=== PATIENT | female | born 1965 | race Caucasian/White ===

== ENCOUNTER 2016-10-05 13:36 | Inpatient (IN) | payer OTHER ==
[~2016-10-05] VITALS: Ht 162.6 cm; Wt 86.0 kg
[~2016-10-05 13:36] MED LIST: CITA10TA4 PO; LEVO125T3 PO
[2016-10-05 13:40] VITALS: BP 146/85; PULSE 74; RESP 15; TEMP 98.2; O2SAT 99
--- NOTE | 2016-10-05 13:42 | PD ---
Physical Exam Time Seen by Provider: 13:41 Narrative 51 y/o female sent here by Dr. Gandhi after an abnormal stress test. Vital signs reviewed. Seen at triage desk. Awaiting bed placement. Data Data Last Documented VS Vital Signs Date Time Temp Pulse Resp B/P Pulse Ox O2 Delivery O2 Flow Rate FiO2 10/05/16 13:40 98.2 74 15 146/85 99 MDM Medical Record Reviewed: Yes Supervised Visit with JACINTA: Carlos Vo Oct 05, 2016 13:42
[2016-10-05] MEDS: SODIUM CHLOR 0.9% 1000 ML INJ 1,000 ML IV ONE ×2 (14:00→14:17)
[2016-10-05] MEDS ORDERED: SODIUM CHLORIDE 0.9% FLUSH 10 ML FLUSH IVF PRN (14:00)
[2016-10-05 14:18] VITALS: BP_SYST 129; BP_SYST 139; BP_DIAS 75; BP_DIAS 81; PULSE 62; O2SAT 96
--- NOTE | 2016-10-05 14:32 | PD ---
HPI Chief Complaint: Cardiac Complaint Time Seen by Provider: 14:20 Travel History International Travel<30 days: No Contact w/Intl Traveler<30days: No Traveled to known affect area: No History of Present Illness HPI Patient is a 51-year-old female sent to the emergency department by Dr. Jensen Gandhi after she developed chest pain while having an exercise stress test today. Patient reports chest pain in the left upper chest wall currently, her pain is a 3 out of 10. She states during the test her pain was a 5 out of 10 and was accompanied by shortness of breath. Patient was given 3 nitroglycerin sublingually at her doctor's office. Patient denies any nausea, lightheadedness , headache. Her past medical history significant for hypothyroidism and anxiety. [facility] Past Medical History Anxiety: Yes Chest Pain: Yes (on and off for a few months) Thyroid Disease: Yes ?: Not Past Surgical History AICD: No Joint Replacement: No Pacemaker: No Other Surgery: Yes (ankle surgery) Social History Alcohol Use: Yes ([facility]) Tobacco Use: No Substance Use: No Allergies-Medications (Allergen,Severity, Reaction): Coded Allergies: HMG-CoA Reductase Inhibitors (Verified Allergy, Severe, 10/05/16) Reported Meds & Prescriptions Reported Meds & Active Scripts Active Reported Levothyroxine 125 mcg (Levothyroxine Sodium) 125 Mcg Tab 125 Mcg PO DAILY Citalopram Hydrobromide 10 Mg Tab 10 Mg PO BID Review of Systems Except as stated in HPI: all other systems reviewed are Neg Eyes: No: Blurred Vision HENT: No: Headaches Cardiovascular: Positive: Chest Pain or Discomfort Respiratory: Positive: Shortness of Breath Gastrointestinal: No: Nausea, Vomiting, Abdominal Pain Physical Exam Narrative GENERAL: Well-developed, well-nourished, alert female. Resting comfortably in no acute distress. SKIN: Warm and dry. HEAD: Atraumatic. Normocephalic. EYES: Pupils equal and round. No scleral icterus. No injection or drainage. ENT: No nasal bleeding or discharge. Mucous membranes pink and moist. NECK: Trachea midline. No JVD. CARDIOVASCULAR: Regular rate and rhythm. RESPIRATORY: No accessory muscle use. Clear to auscultation. Breath sounds equal bilaterally. GASTROINTESTINAL: Abdomen soft, non-tender, nondistended. Hepatic and splenic margins not palpable. MUSCULOSKELETAL: Extremities without clubbing, cyanosis, or edema. No obvious deformities. NEUROLOGICAL: Awake and alert. No obvious cranial nerve deficits. Motor grossly within normal limits. Five out of 5 muscle strength in the arms and legs. Normal speech. PSYCHIATRIC: Appropriate mood and affect; insight and judgment normal. Data Data Last Documented VS Vital Signs Date Time Temp Pulse Resp B/P Pulse Ox O2 Delivery O2 Flow Rate FiO2 10/05/16 17:17 88 19 132/65 95 Room Air 10/05/16 13:40 98.2 Orders Electrocardiogram (10/05/16 14:00) Ckmb (Isoenzyme) Profile (10/05/16 14:00) Complete Blood Count With Diff (10/05/16 14:00) Comprehensive Metabolic Panel (10/05/16 14:00) Magnesium (Mg) (10/05/16 14:00) Prothrombin Time / Inr (Pt) (10/05/16 14:00) Act Partial Throm Time (Ptt) (10/05/16 14:00) Troponin I (10/05/16 14:00) Chest, Single Ap (10/05/16 14:00) Ecg Monitoring (10/05/16 14:00) Bilateral Bp Monitoring (10/05/16 14:00) Iv Access Insert/Monitor (10/05/16 14:00) Oximetry (10/05/16 14:00) Oxygen Administration (10/05/16 14:00) Sodium Chloride 0.9% Flush (Ns Flush) (10/05/16 14:00) Sodium Chlor 0.9% 1000 Ml Inj (Ns 1000 M (10/05/16 14:00) Levothyroxine (Synthroid) (10/06/16 09:00) (Nf) Citalopram Hydrobromide (10/05/16 21:00) Heparin Infusion POLINA.Q1H (10/05/16 17:17) Heparin Inj (Heparin Inj) (10/05/16 23:30) Heparin Inj (Heparin Inj) (10/05/16 23:30) Heparin-D5w Inj (Heparin-D5w Inj) (10/05/16 17:30) Cbc No Diff, Includes Plts (10/08/16 06:00) Act Partial Throm Time (Ptt) (10/06/16 00:17) Place In Observation (10/05/16 ) Vital Signs (Adult) Q4H (10/05/16 17:18) Activity Oob With Assistance (10/05/16 17:18) Code Enforcement Supervisor / Telemetry .CONTINUOUS (10/05/16 17:18) Diet Heart Healthy (10/05/16 Dinner) Sodium Chlor 0.45% 1000 Ml Inj (1/2 Ns 1 (10/05/16 17:18) Sodium Chloride 0.9% Flush (Ns Flush) (10/05/16 17:30) Sodium Chloride 0.9% Flush (Ns Flush) (10/05/16 21:00) Acetaminophen (Tylenol) (10/05/16 17:30) Ondansetron Inj (Zofran Inj) (10/05/16 17:30) Basic Metabolic Panel (Bmp) (10/06/16 06:00) Complete Blood Count With Diff (10/06/16 06:00) Creatine Kinase (Cpk) (10/05/16 17:18) Creatine Kinase (Cpk) (10/05/16 23:18) Troponin I (10/05/16 17:18) Troponin I (10/05/16 23:18) Naloxone Inj (Narcan Inj) (10/05/16 17:30) Docusate Sodium-Senna (Christie-Colace) (10/05/16 21:00) Magnesium Hydroxide Liq (Milk Of Magnesi (10/05/16 17:30) Sennosides (Senokot) (10/05/16 17:30) Bisacodyl Supp (Dulcolax Supp) (10/05/16 17:30) Lactulose Liq (Lactulose Liq) (10/05/16 17:30) Diet Npo (10/06/16 Breakfast) Admit Order (Ed Use Only) (10/05/16 17:20) Labs Laboratory Tests Test 10/05/16 14:05 White Blood Count 8.6 TH/MM3 Red Blood Count 5.00 MIL/MM3 Hemoglobin 14.7 GM/DL Hematocrit 44.3 % Mean Corpuscular Volume 88.7 FL Mean Corpuscular Hemoglobin 29.3 PG Mean Corpuscular Hemoglobin 33.1 % Concent Red Cell Distribution Width 13.4 % Platelet Count 289 TH/MM3 Mean Platelet Volume 8.0 FL Neutrophils (%) (Auto) 59.7 % Lymphocytes (%) (Auto) 29.7 % Monocytes (%) (Auto) 6.5 % Eosinophils (%) (Auto) 3.3 % Basophils (%) (Auto) 0.8 % Neutrophils # (Auto) 5.2 TH/MM3 Lymphocytes # (Auto) 2.6 TH/MM3 Monocytes # (Auto) 0.6 TH/MM3 Eosinophils # (Auto) 0.3 TH/MM3 Basophils # (Auto) 0.1 TH/MM3 CBC Comment DIFF FINAL Differential Comment Prothrombin Time 10.2 SEC Prothromb Time International 0.9 RATIO Ratio Activated Partial 27.1 SEC Thromboplast Time Sodium Level 139 MEQ/L Potassium Level 3.6 MEQ/L Chloride Level 103 MEQ/L Carbon Dioxide Level 27.8 MEQ/L Anion Gap 8 MEQ/L Blood Urea Nitrogen 16 MG/DL Creatinine 0.95 MG/DL Estimat Glomerular Filtration 62 ML/MIN Rate Random Glucose 90 MG/DL Calcium Level 9.5 MG/DL Magnesium Level 2.1 MG/DL Total Bilirubin 0.6 MG/DL Aspartate Amino Transf 18 U/L (AST/SGOT) Alanine Aminotransferase 33 U/L (ALT/SGPT) Alkaline Phosphatase 122 U/L Total Creatine Kinase 80 U/L Troponin I LESS THAN 0.02 NG/ML Total Protein 7.5 GM/DL Albumin 3.9 GM/DL MDM Medical Decision Making Medical Screen Exam Complete: Yes Emergency Medical Condition: Yes Interpretation(s) Vital Signs Date Time Temp Pulse Resp B/P Pulse Ox O2 Delivery O2 Flow Rate FiO2 10/05/16 14:18 62 129/75 139/81 10/05/16 14:18 Room Air 10/05/16 14:18 96 Room Air 10/05/16 13:40 98.2 74 15 146/85 99 Differential Diagnosis ACS vs ischemia vs exercise intolerance vs other Narrative Course Patient is a 51-year-old female sent by Dr. Jensen Gandhi's office after an abnormal stress test in the office today. Patient's vital signs are stable, labs and imaging ordered and pending. CBC, chemistry, coags, cardiac enzymes reviewed and no acute findings identified. Initial EKG shows sinus bradycardia with a rate of 58. Chest x-ray shows no acute disease. Dr. Gandhi was paged with results, he recommended patient be placed on heparin drip, he will be performing a cardiac catheterization in the morning. Patient will be kept nothing by mouth after midnight. He requested that hospitalists admit. Dr. Santacruz accepted admission, orders placed. Diagnosis Primary Impression: Chest pain Qualified Code: R07.9 - Chest pain, unspecified type Additional Impression: Abnormal stress test Admitting Information Admitting Physician Requests: Admit Condition: Stable Sully Espinosa Oct 05, 2016 14:32
[2016-10-05 14:50] LABS: AUTOMATED NEUTROPHIL # 5.2 TH/MM3 (1.8-7.7); BASOPHIL # 0.1 TH/MM3 (0-0.2); BASOPHIL % 0.8 % (0.0-2.0); EOSINOPHIL # 0.3 TH/MM3 (0-0.4); EOSINOPHIL % 3.3 % (0.0-4.0); HEMATOCRIT 44.3 % (35.0-46.0); HEMO FLAGS DIFF FINAL; LYMPH % 29.7 % (9.0-44.0); LYMPHOCYTE # 2.6 TH/MM3 (1.0-4.8); MEAN CELL VOLUME 88.7 FL (80.0-100.0); MEAN CORPUSCULAR HEMOGLOBIN 29.3 PG (27.0-34.0); MEAN CORPUSCULAR HGB CONC 33.1 % (32.0-36.0); MONO % 6.5 % (0.0-8.0); NEUT % 59.7 % (16.0-70.0); PLATELET COUNT 289 TH/MM3 (150-450); RED CELL DISTRIBUTION WIDTH 13.4 % (11.6-17.2); WHITE BLOOD COUNT 8.6 TH/MM3 (4.0-11.0)
--- NOTE | 2016-10-05 15:08 | RADRPT ---
EXAM DATE/TIME: 10/05/2016 14:18 [place] COMPARISON: No previous studies available for comparison. INDICATIONS : Chest pain. MEDICAL HISTORY : None. SURGICAL HISTORY : None. ENCOUNTER: Initial ACUITY: 1 day PAIN SCORE: 4/10 LOCATION: Left middle chest FINDINGS: The lungs are clear without infiltrate, nodule, or mass. There is no appreciable pleural effusion fo r technique. Heart and mediastinum are unremarkable. CONCLUSION: No acute cardiopulmonary disease. Froilan Olson MD on October 05, 2016 at 15:07 Board Certified Radiologist. This report was verified electronically.
[2016-10-05 15:11] LABS: ALT (GPT) 33 U/L (10-53); ANION GAP 8 MEQ/L (5-15); AST (GOT) 18 U/L (15-37); BICARBONATE 27.8 MEQ/L (21.0-32.0); BLOOD UREA NITROGEN 16 MG/DL (7-18); CHLORIDE 103 MEQ/L (98-107); MAGNESIUM 2.1 MG/DL (1.5-2.5); POTASSIUM 3.6 MEQ/L (3.5-5.1); SODIUM (NA) 139 MEQ/L (136-145)
[2016-10-05 15:12] LABS: GLOMERULAR FILTRATION RATE 62 ML/MIN (>89); TOTAL BILIRUBIN ADULT 0.6 MG/DL (0.2-1.0)
[2016-10-05 15:14] LABS: ALKALINE PHOSPHATASE 122 U/L (45-117); APTT (PATIENT) 27.1 SEC (24.3-30.1); INTERNATIONAL NORMALIZED RATIO 0.9 RATIO; PROTHROMBIN TIME - PATIENT 10.2 SEC (9.8-11.6)
[2016-10-05 15:16] LABS: CREATINE KINASE 80 U/L (26-192)
[2016-10-05 17:17] VITALS: BP 132/65; PULSE 88; RESP 19; O2SAT 95
[2016-10-05] MEDS ORDERED: SODIUM CHLOR 0.45% 1000 ML INJ 1,000 ML IV SCH (17:18)
[2016-10-05] MEDS ORDERED: ACETAMINOPHEN 325 MG TAB PO PRN (17:30)
[2016-10-05] MEDS ORDERED: SODIUM CHLORIDE 0.9% FLUSH 10 ML FLUSH IV FLUSH PRN (17:30)
[2016-10-05] MEDS ORDERED: BISACODYL 10 MG SUPP RECTAL PRN (17:30)
[2016-10-05] MEDS ORDERED: MAGNESIUM HYDROXIDE SUSP 30 ML CUP PO PRN (17:30)
[2016-10-05] MEDS ORDERED: NALOXONE HCL 0.4 MG/ML AMP IV PRN (17:30)
[2016-10-05] MEDS ORDERED: ONDANSETRON HCL 4 MG/2 ML VIAL IVP PRN (17:30)
[2016-10-05] MEDS ORDERED: HEPARIN-D5W INJ 250 ML IV SCH (17:30)
[2016-10-05] MEDS ORDERED: SENNOSIDES 8.6 MG TAB PO PRN (17:30)
[2016-10-05] MEDS ORDERED: LACTULOSE SYRUP 20 GM/30 ML CUP PO PRN (17:30)
[2016-10-05 18:37] LABS: CREATINE KINASE 72 U/L (26-192)
[2016-10-05] MEDS: SODIUM CHLOR 0.9% 1000 ML INJ 1,000 ML IV SCH (18:53)
--- NOTE | 2016-10-05 18:59 | HHI.HP ---
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 She has a history of hypothyroidism and hyperlipidemia, she said that she is allergic to statins in the form of muscular pain and weakness, the patient has been having exertional chest pain going on for the last 2 months. The pain sometimes occurs at rest. Mostly occurs at exertion.. She was referred to seating upholsterer Dr. Gandhi. She had a stress test this morning. She had chest pain/pressure during the stress test and was told that she has some electrocardiographic changes. Those changes are not clear at this point. She was sent in to the emergency department at [facility] for further management. Aspirin instructions from her seating upholsterer Dr. Gandhi, she was to be started on IV heparin drip and to the fasting after midnight for cardiac catheterization tomorrow. She was seen by the undersigned in room 51 at the emergency department. In the presence of her mother. She is alert and oriented. She is in no distress. She stated that she had 3 sublingual nitroglycerin after the chest pain this morning and this had some relief. Chest pain is more in the pressure fashion. Located in the left parasternal area. It radiates to the left side of the neck. She did have some nausea with it but without any shortness of breath or palpitations. She denies any fever chills or diaphoresis. No abdominal pain, no dysuria no changes of habits. Review of Systems Other 10 systems reviewed and negative except for the above Past Family Social History Past Medical History Hypothyroidism Anxiety Hyperlipidemia Obesity Right ankle fracture Right knee pain Past Surgical History Right knee meniscus surgery Allergies: Coded Allergies: HMG-CoA Reductase Inhibitors (Verified Allergy, Severe, 10/05/16) Active Ordered Medications Reported Meds & Active Scripts Active Reported Levothyroxine 125 mcg (Levothyroxine Sodium) 125 Mcg Tab 125 Mcg PO DAILY Citalopram Hydrobromide 10 Mg Tab 10 Mg PO BID Family History Grandmother had both heart disease and diabetes Social History No smoking, no excessive alcohol, no illicit drug use Physical Exam Vital Signs Vital Signs Date Time Temp Pulse Resp B/P Pulse Ox O2 Delivery O2 Flow Rate FiO2 10/05/16 17:17 88 19 132/65 95 Room Air 10/05/16 14:18 62 129/75 139/81 10/05/16 14:18 Room Air 10/05/16 14:18 96 Room Air 10/05/16 13:40 98.2 74 15 146/85 99 Physical Exam GENERAL: This is a pleasant, obese, mildly anxious, well-developed patient, in no apparent distress. SKIN: No rashes, ecchymoses or lesions. Cool and dry. HEAD: Atraumatic. Normocephalic. No temporal or scalp tenderness. EYES: Pupils equal round and reactive. Extraocular motions intact. No scleral icterus. No injection or drainage. ENT: Nose without bleeding, purulent drainage or septal hematoma. Throat without erythema, tonsillar hypertrophy or exudate. Uvula midline. Airway patent. NECK: Trachea midline. No JVD or lymphadenopathy. Supple, nontender, no meningeal signs. CARDIOVASCULAR: Regular rate and rhythm without murmurs, gallops, or rubs. RESPIRATORY: Clear to auscultation. Breath sounds equal bilaterally. No wheezes , rales, or rhonchi. GASTROINTESTINAL: Abdomen soft, non-tender, nondistended. No hepato-splenomegaly , or palpable masses. No guarding. MUSCULOSKELETAL: Extremities without clubbing, cyanosis, or edema. No joint tenderness, effusion, or edema noted. No calf tenderness. Negative Homans sign bilaterally. NEUROLOGICAL: Awake and alert. Cranial nerves II through XII intact. Normal speech. Laboratory Laboratory Tests Test 10/05/16 10/05/16 14:05 17:40 White Blood Count 8.6 Red Blood Count 5.00 Hemoglobin 14.7 Hematocrit 44.3 Mean Corpuscular Volume 88.7 Mean Corpuscular Hemoglobin 29.3 Mean Corpuscular Hemoglobin 33.1 Concent Red Cell Distribution Width 13.4 Platelet Count 289 Mean Platelet Volume 8.0 Neutrophils (%) (Auto) 59.7 Lymphocytes (%) (Auto) 29.7 Monocytes (%) (Auto) 6.5 Eosinophils (%) (Auto) 3.3 Basophils (%) (Auto) 0.8 Neutrophils # (Auto) 5.2 Lymphocytes # (Auto) 2.6 Monocytes # (Auto) 0.6 Eosinophils # (Auto) 0.3 Basophils # (Auto) 0.1 CBC Comment DIFF FINAL Differential Comment Prothrombin Time 10.2 Prothromb Time International 0.9 Ratio Activated Partial 27.1 Thromboplast Time Sodium Level 139 Potassium Level 3.6 Chloride Level 103 Carbon Dioxide Level 27.8 Anion Gap 8 Blood Urea Nitrogen 16 Creatinine 0.95 Estimat Glomerular Filtration 62 Rate Random Glucose 90 Calcium Level 9.5 Magnesium Level 2.1 Total Bilirubin 0.6 Aspartate Amino Transf 18 (AST/SGOT) Alanine Aminotransferase 33 (ALT/SGPT) Alkaline Phosphatase 122 Total Creatine Kinase 80 72 Troponin I LESS THAN 0.02 LESS THAN 0.02 Total Protein 7.5 Albumin 3.9 Result Diagram: 10/05/16 1405 10/05/16 1405 Imaging Elevated heart exam shows normal sinus rhythm without evidence of ischemia at this time Last 24 hours Impressions Chest X-Ray 10/05/16 1400 Signed Impressions: Service Date/Time: Wednesday, October 05, 2016 14:18 - CONCLUSION: No acute cardiopulmonary disease. Froilan Olson MD Assessment and Plan Assessment and Plan Assessment Exertional chest pains/pressure, improved with nitroglycerin Exertional electrocardiographic changes Possible angina Hyperlipidemia, not on treatment Obesity Plan The patient is being admitted to telemetry IV heparin drip is started Nitropaste is ordered also as needed nitroglycerin sublingual She is to be fasting after midnight Past lipid profile is ordered Her seating upholsterer Dr. Gandhi is consulted She is to have a cardiac catheterization tomorrow Discussed with patient Discussed with nurse Discussed with emergency physician 40 minutes Discussed With: Nurse Alli Santacruz MD Oct 05, 2016 18:59
[2016-10-05] MEDS ORDERED: diphenhydrAMINE HCL 50 MG CAP PO SCH (19:00)
[2016-10-05] MEDS ORDERED: NITROGLYCERIN 2% OINT 1 GM PACKET TOPICAL SCH (19:00)
[2016-10-05] MEDS ORDERED: ASPIRIN 325 MG TAB PO SCH (19:00)
[2016-10-05] MEDS ORDERED: MORPHINE SULFATE 4 MG/ML INJ IV PUSH PRN (19:00)
[2016-10-05] MEDS ORDERED: DIAZEPAM 5 MG TAB PO SCH (19:00)
[2016-10-05] MEDS: NITROGLYCERIN 2% OINT 1 GM PACKET TOPICAL SCH ×2 (19:04→23:16)
[2016-10-05 21:00] VITALS: BP 141/89; PULSE 62; RESP 16; TEMP 97.8; O2SAT 96
[2016-10-05] MEDS: DOCUSATE SODIUM 50 MG/SENNA 8.6 MG TAB PO SCH (21:00)
[2016-10-05] MEDS ORDERED: CITA10TA4 PO (21:04)
[2016-10-05] MEDS ORDERED: LEVO125T4 PO (21:04)
[2016-10-05] MEDS: METOPROLOL TARTRATE 25 MG TAB PO SCH (21:06)
[2016-10-05] MEDS: SODIUM CHLORIDE 0.9% FLUSH 10 ML FLUSH IV FLUSH SCH (21:34)
[2016-10-05] MEDS: CITALOPRAM HYDROBROMIDE 20 MG TAB PO SCH (21:34)
[2016-10-05] MEDS: NITROGLYCERIN 0.4 MG SL 25 TABS/BTL SL PRN ×2 (23:14→23:19)
[2016-10-05] MEDS ORDERED: MORPHINE SULFATE 8 MG/ML INJ IV PUSH PRN (23:30)
[2016-10-05] MEDS ORDERED: HEPARIN SODIUM - IV 10,000 UNITS/10 ML VIAL IV PRN ×2 (23:30)
[2016-10-05] MEDS: MORPHINE SULFATE 8 MG/ML INJ IV PUSH PRN (23:31)
[2016-10-05 23:41] VITALS: BP 108/72; PULSE 65; RESP 16; TEMP 98; O2SAT 96
[2016-10-06] VITALS (12 sets, daily range): BP systolic 103–113; BP diastolic 63–71; PULSE 45–65; RESP 16–18; TEMP 97.2–98.2; O2SAT 95–97
[2016-10-06 01:19] LABS: APTT (PATIENT) 37.6 SEC (24.3-30.1)
[2016-10-06 01:42] LABS: CREATINE KINASE 64 U/L (26-192)
[2016-10-06] MEDS: NITROGLYCERIN 0.4 MG SL 25 TABS/BTL SL PRN (03:42)
[2016-10-06] MEDS: MORPHINE SULFATE 8 MG/ML INJ IV PUSH PRN (03:43)
[2016-10-06] MEDS: SODIUM CHLOR 0.9% 1000 ML INJ 1,000 ML IV SCH ×2 (03:45→14:53)
[2016-10-06 05:55] LABS: AUTOMATED NEUTROPHIL # 4.7 TH/MM3 (1.8-7.7); BASOPHIL % 0.5 % (0.0-2.0); EOSINOPHIL # 0.2 TH/MM3 (0-0.4); EOSINOPHIL % 2.4 % (0.0-4.0); HEMATOCRIT 39.9 % (35.0-46.0); HEMO FLAGS DIFF FINAL; LYMPH % 39.7 % (9.0-44.0); LYMPHOCYTE # 3.6 TH/MM3 (1.0-4.8); MEAN CELL VOLUME 88.4 FL (80.0-100.0); MEAN CORPUSCULAR HEMOGLOBIN 29.7 PG (27.0-34.0); MEAN CORPUSCULAR HGB CONC 33.6 % (32.0-36.0); NEUT % 51.4 % (16.0-70.0); PLATELET COUNT 265 TH/MM3 (150-450); RED BLOOD COUNT 4.51 MIL/MM3 (4.00-5.30); RED CELL DISTRIBUTION WIDTH 13.1 % (11.6-17.2); WHITE BLOOD COUNT 9.2 TH/MM3 (4.0-11.0)
[2016-10-06] MEDS ORDERED: LEVOTHYROXINE SODIUM 125 MCG TAB PO SCH (06:00)
[2016-10-06 06:23] LABS: ANION GAP 6 MEQ/L (5-15); BICARBONATE 27.5 MEQ/L (21.0-32.0); BLOOD UREA NITROGEN 13 MG/DL (7-18); CHLORIDE 109 MEQ/L (98-107); GLOMERULAR FILTRATION RATE 68 ML/MIN (>89); POTASSIUM 4.2 MEQ/L (3.5-5.1); SODIUM (NA) 142 MEQ/L (136-145); URIC ACID 4.3 MG/DL (2.6-6.0)
[2016-10-06] MEDS: NITROGLYCERIN 2% OINT 1 GM PACKET TOPICAL SCH ×3 (06:29→18:00)
[2016-10-06 06:48] LABS: HDL CHOLESTEROL 51.8 MG/DL (40.0-60.0); LDL CHOLESTEROL 117 MG/DL (0-99)
[2016-10-06] MEDS ORDERED: IOHEXOL 350 MG/ML 100 ML BTL (for Cath Lab) OTHER ONE (07:00)
[2016-10-06] MEDS ORDERED: HEPARIN-NS/PF INJ 500 ML ONE (07:02)
[2016-10-06] MEDS ORDERED: MIDAZOLAM HCL 2 MG/2 ML VIAL ONE (07:14)
[2016-10-06] MEDS ORDERED: SODIUM CHLOR 0.9% 1000 ML INJ 1,000 ML IV SCH (08:10)
--- NOTE | 2016-10-06 08:11 | CATHPROC ---
[employer] HIS Report Study Information Study Number Admission Scheduled Start Study Start [id number] Oct 05 2016 5:23PM 10/05/2016 Oct 06 2016 7:03AM [place] [facility] Cardiac Catheterization Admit Source Facility Department Other [facility] - Permit Agent Physician and Clinical Staff Initial MD Gandhi, Jensen Sleep Techfranko Dutton RN, Mirian Tom RN Other cathlab, cathlab Recorder Jose Francisco Stratton RCIS(BS) Scrub Inez Davis,CAR TRIMMER TECH2 Procedures Performed Procedure Location (Site) Vessel Name Angiogram LV LV Ventricle Coronary Angiograms LCA Left Coronary Coronary Angiograms RCA Right Coronary L Heart Cath Equipment Time Machine Whitener Description Size Mfg Part Number Used/Scraped TRANSDUCER, TRUWAVE [id number] 07:07 WAGNER NEAL * Used W/STOCKCOCK *[id number] *[id number] *[id number] *[id number] PIGTAIL ANG. 145 INFINITI [id number] CATHETER *[id number] 07:56 DAIG/ST. LIZZ[employer] MEDICAL ANGIOSEAL, FR6 VIP FR 6 Used *[id number] 07:07 [employer] INDUSTRIES PACK, CCL CUSTOM * Used *[id number] 07:07 [employer] PACER PEN, SKIN DUAL W/ RULER * Used *[id number] 07:07 [employer] MEDICAL SHEATH, FR6.5 PRELUDE 11CM FR 6.5 038ACT Used *[id number] 07:07 [employer] MEDICAL WIRE, 3MMJ .035 180CM 180CM Used *[id number] 07:07 NAMIC MANIFOLD, 4 PORT * Used *[id number] 07:39 [employer] OMNIPAQUE, 350 MG, 150ML 150ML [id number] Used 07:40 [employer] OMNIPAQUE, 350 MG, 50ML 50ML [id number] Used [id number] 07:07 [employer] MEDICAL BLANKET,WARM AIR CCL * Used *[id number] Equipment Model, Serial, Lot Number and Expiration Data Description Model Number Serial Number Lot Number Expiration Date ANGIOSEAL, FR6 VIP [id number] 04-27-2017 History: Current Medications Medication Dosage/Unit Route Frequency Last Date/Time Taken ASA Beta Yue History: Allergies Allergy Reaction HMG-CoA Reductase Inhibitors History: Risk Factors Family History of Hypertension Dyslipidemia Previous [place] Previous Heart Failure Premature CAD Yes Yes No No No Prior Valve Prior PCI Prior CABG Surgery No No No Cerebrovascular Peripheral Artery Chronic Lung On Dialysis Diabetes Disease Disease Disease No No No No No History: Symptoms/Diagnosis Selection Items Chest pain History: Stress Tests Stress or Imaging Studies Performed Yes Standard Exercise Stress Stress Test Result Stress Test Ischemia Risk/Extent Test Yes Positive High Stress Echo No Stress Test CMR No Cardiac CTA Coronary Calcium Score No No History: Other Disease Selection Items HTN History: Other Current Smoker No Labs Hgb (g/dl) Hct (%) WBC (l/cumm) Platelets (thousands) 11.60-17.00 35.00-51.00 4.00-11.00 150.00-450.00 13.4 39.9 9.2 265 Glucose (mg/dl) BUN (mg/dl) Creatinine (mg/dl) BUN:Creatinine (1:x) 74.00-106.00 7.00-18.00 0.50-1.30 10.00-20.00 101 13 0.8 16.3 Na (meq/l) K (meq/l) 136.00-145.00 3.50-5.10 142 4.2 INR (PTT:PT) 0.90-1.10 0.9 Troponin I (ng/ml) CPK-MB (ng/ML) 0.02-0.05 0.50-3.60 0.02 Not Drawn Medication Medication Total Dose (Bolus/Oral) Medication Total Dosage/Unit 1% XYLOCAINE 20 mL VERSED 2 mg Medications (Bolus/Oral) Medication Time Given Dosage/Unit Administered By Reason VERSED 10/06/2016 7:28:32 AM 1 mg Murali Dutton RN 1 mg VERSED given in lab by Murali Dutton RN in Right Antecubital via Peripheral IV. Ordered by Jensen Gandhi. VERSED 10/06/2016 7:34:56 AM 1 mg Murali Dutton RN 1 mg VERSED given in lab by Murali Dutton RN in Right Antecubital via Peripheral IV. Ordered by Jensen Gandhi. 1% XYLOCAINE 10/06/2016 7:37:34 AM 20 mL Jensen Gandhi 20 mL 1% XYLOCAINE given in lab by Jensen Gandhi in Right Groin via Subcutaneous. Medication (Drip) Medication Time Given Dosage/Unit Concentration/Unit Diluent (ml) Solution [facility] Solutions 10/06/2016 7:04:01 AM 0 mL (IV) 500 NaCl .9 Patient arrived on IV Solutions in Right Antecubital via Peripheral IV. Pump/Drip Flow = 20 ml/hr usi ng NaCl .9. Ordered by Jensen Gandhi. Initial Case Assessment Cardiovascular HR Rhythm NIBP Chest Pain 50 sinusbrady 132/77 0 Edema Present Skin color Skin None Normal Warm Dry Circulatory - Right Pulses Dorsalis Pedis Femoral 1 1 Scale (0,1,2,3,4,d) Circulatory - Left Pulses Dorsalis Pedis Femoral 1 1 Scale (0,1,2,3,4,d) Neurological State Oriented to time-place- Alert Moves all extremities person Respiration - General Respiration Rate SpO2 (%) (B/min) 15 99 Chronological Log Time Study Chronological Log 7:03:51 Patient arrived via Bed. 7:03:52 Patient Name, D.O.B, / Armband Verified By R.N. 7:03:53 Consent signed by the physician and the patient and verified by the Permit Agent staff. 7:03:53 Pre-op and post- op instructions given; patient acknowledges understanding of instructions. Verbal Stimulation=~VERBAL~ Physical Stimulation=~PHYSICAL~ Airway=~AIRWAY~ Respiration=~RESPIRA TION~ 7:03:54 TOTAL=~TOTAL~. (0=absent, 1=limited, 2=present) 7:03:55 Presedation assessment performed by Permit Agent RN. 7:03:56 Immediate Presedation assesment performed by physician. 7:03:56 Patient has been NPO for More than 6Hrs. 7:03:57 Skin Breakdown- 7:03:59 Patient Warmer Placed on the Table. 7:04:00 Leroy Prominences Protected 7:04:01 A # 20 IV was noted in the Antecubital (right). Grade = 0 Patient arrived on IV Solutions in Right Antecubital via Peripheral IV. Pump/Drip Flow = 20 ml/h r using NaCl .9. Ordered 7:04:01 by Jensen Gandhi. 7:04:02 History and physical on the chart or being dictated. Vitals capture started with the following parameters, Patient=Adult, Interval=5 min, Initial Pre hgjkx=328 mmHg, 7:09:14 Deflation Rate=5 mmHg Assessment: Initial Case, HR=50 BPM, Rhythm=sinusbrady, IOUU=451/77 mmhg, Chest Pain=0, Edema=No ne, Color=Normal, Skin = Warm, Dry Right Pulses: Kong Ped=1, Femoral=1 7:09:21 Left Pulses: Kong Ped=1, Femoral=1 Neurological: State=Alert, Ox3, HORAN Respiration: Resp=15 B/min, SpO2=99 % 7:09:50 Reference ECG taken 7:09:51 HR=48 bpm, KGPJ=331/77 mmhg, SpO2=99.0 %, Resp=15 B/min, Pain=0, Aleida=10, Wright=2 7:14:48 HR=60 bpm, XTXO=834/92 mmhg, SpO2=98 %, Resp=11 B/min, Pain=0, Aleida=10, Wright=2 7:16:25 Bilateral groins prepped with 2% chlorhexidine, and with a 3 min. waiting time. 7:18:53 Pressure channel 1 zeroed. 7:19:15 MD paged 7:19:49 HR=52 bpm, QGVI=491/83 mmhg, SpO2=99 %, Resp=13 B/min, Pain=0, Aleida=10, Wright=2 7:24:54 HR=60 bpm, MYZU=972/70 mmhg, SpO2=98.0 %, Resp=11 B/min, Pain=0, Aleida=10, Wright=2 7:27:59 MD arrived. 7:28:26 Contrast Scanned 7:28:27 Immediate Presedation assesment performed by physician. 7:28:32 1 mg VERSED given in lab by Murali Dutton RN in Right Antecubital via Peripheral IV. Ordered by Jensen Gandhi. 7:30:30 HR=60 bpm, NZNQ=654/67 mmhg, SpO2=98.0 %, Resp=16 B/min, Pain=0, Aleida=10, Wright=2 Time Out. Correct patient, correct procedure,correct physician, ,power injector loaded with cont rast with surgical team 7:31:35 present. Time Out Concurred by , individual staff in procedure 7:32:13 Case Start 7:32:14 Verbal Stimulation=2 Physical Stimulation=2 Airway=2 Respiration=2 TOTAL=8. (0=absent, 1=rob ited, 2=present) 7:34:50 HR=55 bpm, CKAN=113/75 mmhg, SpO2=94.0 %, Resp=11 B/min, Pain=0, Aleida=10, Wright=2 7:34:56 1 mg VERSED given in lab by Murali Dutton RN in Right Antecubital via Peripheral IV. Ordered by Jensen Gandhi. 7:37:34 20 mL 1% XYLOCAINE given in lab by Jensen Gandhi in Right Groin via Subcutaneous. 7:38:52 Access site was Right Femoral Artery. 7:39:00 A SHEATH, FR6.5 PRELUDE 11CM FR 6.5 was advanced into the Fem Art (right) using the Percutan eous technique. A PIGTAIL ANG. 145 INFINITI CATHETER FR 6 was advanced over a wire. OMNIPAQUE, 350 MG, 50ML 50ML was used 7:39:06 for injections. 7:39:49 HR=50 bpm, HFVQ=709/71 mmhg, SpO2=97 %, Resp=11 B/min, Pain=0, Aleida=10, Wright=2 Recorded Pressure: LV, HR=51, Condition=Condition 1 7:40:50 (Left Ventricle) LV 105/15/24 7:40:58 The LV was injected at 8 cc/sec for a total of 32. OMNIPAQUE, 350 MG, 50ML 50ML used. Recorded Pressure: LV, Ao, HR=68, Condition=Condition 1 7:42:15 (Left Ventricle) LV 92/10/16, (Aorta) Ao 95/54/73 7:42:40 Catheter was removed A JL 4.0 INFINITI CATHETER FR 6 was advanced over a wire. OMNIPAQUE, 350 MG, 150ML 150ML was use d for 7:43:06 injections. 7:44:52 HR=52 bpm, ZARL=452/66 mmhg, SjA7=016.0 %, Resp=11 B/min, Pain=0, Aleida=10, Wright=2 Recorded Pressure: Ao, HR=58, Condition=Condition 1 7:45:04 (Aorta) Ao 103/60/80 7:45:27 Catheter was removed A JL 3.5 INFINITI CATHETER FR 6 was advanced over a wire. OMNIPAQUE, 350 MG, 150ML 150ML was use d for 7:45:30 injections. 7:49:05 The LCA was injected and visualized at various angles. OMNIPAQUE, 350 MG, 150ML 150ML used. 7:49:53 HR=58 bpm, YNIL=521/66 mmhg, SpO2=99.0 %, Resp=15 B/min, Pain=0, Aleida=10, Wright=2 7:50:34 Catheter was removed A 3DRC INFINITI CATHETER FR 6 was advanced over a wire. OMNIPAQUE, 350 MG, 150ML 150ML was used for 7:50:35 injections. 7:52:29 The RCA was injected and visualized at various angles. OMNIPAQUE, 350 MG, 150ML 150ML used. 7:54:07 Catheter was removed 7:54:16 Right groin prepped with 2% chlorhexidine, and with a 3 min. waiting time. 7:54:54 HR=66 bpm, LHYY=802/73 mmhg, SpO2=99.0 %, Resp=11 B/min, Pain=0, Aleida=10, Wright=2 7:55:05 An injection in the Fem Art (right) was made through the SHEATH, FR6.5 PRELUDE 11CM FR 6.5. 7:56:25 ANGIOSEAL, FR6 VIP FR 6 placement in the Fem Art (right) 7:59:53 HR=53 bpm, MXVE=172/70 mmhg, Resp=10 B/min, Pain=0, Aleida=10, Wright=2 7:59:55 Case End 8:00:39 Catheter(s) removed without difficulty 8:00:42 Sterile dressing applied to site 8:00:43 No case complications noted. 8:00:44 Cine recording checked. 8:00:45 Bedside Report will be given. 8:00:47 Implantable Device card placed in patient's chart. 8:00:49 Contrast Scanned 8:00:51 Verbal Stimulation=2 Physical Stimulation=2 Airway=2 Respiration=2 TOTAL=8. (0=absent, 1=rob ited, 2=present) 8:00:59 A Left Heart Cath was performed. 8:03:12 Sterile dressing applied to site 8:05:40 Patient moved to summa healther End Study - Contrast Media Used In Study Contrast Total Opened (mL) Total Used (mL) Total Wasted (mL) Omnipaque 90 90 0 End Study - Maximum Contrast Load Max Contrast Load (mL) 537.5 End Study - Radiation Exposure Fluoro Time (minutes) 4.0 End Study - Patient Disposition Complications Transferred To Interventional Outcome No Critical Care Bed No attempt made
[2016-10-06] MEDS ORDERED: MISC INFORMATION XX ONE (08:15)
[2016-10-06] MEDS ORDERED: ONDANSETRON HCL 4 MG/2 ML VIAL IV PRN (08:15)
[2016-10-06] MEDS ORDERED: BACITRACIN OINT 0.9 GM PKT TOP ONE (08:15)
--- NOTE | 2016-10-06 08:24 | MA ---
cc: HUMBERTO BOYER M.D. DATE: 10/06/2016 INDICATION FOR PROCEDURE Unstable angina. PROCEDURE PERFORMED 1. Left heart catheterization. 2. Left ventriculography. 3. Coronary angiography. 4. Right femoral angiography with Angio-Seal placement. DESCRIPTION OF PROCEDURE The patient was brought to the cardiac label printer in a fasting state. She was sedated with IV Versed. Using 1% lidocaine for local anesthesia access was easily obtained of the right femoral artery. Left ventricular pressure was then recorded using a pigtail catheter followed by left ventriculography and then a pullback. Coronary angiography was then performed. A left 4 Chris was too large. A left 3.5 Chris was still slightly large but suitable for engaging the left coronary artery. A 3-D RC was used to image the right coronary artery. Angiography of the right femoral artery was then obtained via the sheath followed by uncomplicated Angio-Seal placement. There were no complications. Total contrast load was 90 cc. FINDINGS HEMODYNAMICS The left ventricular pressure was 92/10 with an end-diastolic pressure of 16. The aortic pressure was 103/60 with a mean of 80. There is no gradient during pullback from the left ventricle to the aorta. LEFT VENTRICULOGRAPHY Left ventriculography shows normal left ventricular function, ejection fraction of 60%. There is no coronary calcification seen. CORONARY ANGIOGRAPHY The left main coronary artery may have as much as a 10-20% ostial stenosis, but it is possible this is an artifact due to angulation. The left main otherwise appears normal. Distally it bifurcates into the left anterior descending artery and circumflex artery. There is a trivial ramus intermediate branch. The LAD does give off one very large diagonal branch which appears normal. The remainder of the LAD reaches the apex and appears normal. The left circumflex artery gives off one major branch which appears normal. The right coronary artery is dominant. This vessel appears normal. CONCLUSIONS 1. Slightly elevated left ventricular end-diastolic pressure. 2. Normal left ventricular systolic function. 3. Essentially normal coronary arteries, although there may be a 10-20% ostial left main stenosis. RECOMMENDATIONS The cath results are surprising. She is quite limited with exertion due to chest pain so will get a stat. chest CTA to rule out pulmonary embolism now that coronary insufficiency has been ruled out. MD THAI Ramos/RONN /8:12 AM /8:22 AM
[2016-10-06] MEDS: METOPROLOL TARTRATE 25 MG TAB PO SCH (08:57)
[2016-10-06] MEDS: SODIUM CHLORIDE 0.9% FLUSH 10 ML FLUSH IV FLUSH SCH (08:57)
[2016-10-06] MEDS: CITALOPRAM HYDROBROMIDE 20 MG TAB PO SCH (08:59)
[2016-10-06] MEDS: DOCUSATE SODIUM 50 MG/SENNA 8.6 MG TAB PO SCH (08:59)
[2016-10-06] MEDS ORDERED: IOHEXOL 350 MG/ML 10 ML VIAL (for RAD DIAG) IV ONE (11:27)
--- NOTE | 2016-10-06 11:57 | RADRPT ---
EXAM DATE/TIME: 10/06/2016 11:19 [place] COMPARISON: No previous studies available for comparison. INDICATIONS : Chest pain with exertion; evaluate for pulmonary embolism. IV CONTRAST: 50 cc Visipaque (iodixanol) IV RADIATION DOSE: 22.83 CTDIvol (mGy) MEDICAL HISTORY : Hypertension. Hypothyroidism. SURGICAL HISTORY : None. ENCOUNTER: Initial ACUITY: 2 months PAIN SCALE: 0/10 LOCATION: chest TECHNIQUE: Volumetric scanning of the chest was performed using a pulmonary embolism protocol MIP images were re constructed. Using automated exposure control and adjustment of the mA and/or kV according to patien t size, radiation dose was kept as low as reasonably achievable to obtain optimal diagnostic quality images. DICOM format image data is available electronically for review and comparison. Follow-up recommendations for incidentally detected pulmonary nodules are based at a minimum on nodul e size and patient risk factors according to Fleischner Society Guidelines. FINDINGS: The examination is of good diagnostic quality. No pulmonary embolus is identified. There is no significant hilar or mediastinal adenopathy. The heart is normal in size. No axillary eduardo nopathy is identified. Imaging through the pulmonary parenchyma is provided. The lungs are clear. No suspicious mass lesion is identified. The visualized bony structures are grossly intact. CONCLUSION: No pulmonary embolus identified. Bogdan Patterson MD on October 06, 2016 at 11:54 Board Certified Radiologist. This report was verified electronically.
--- NOTE | 2016-10-06 14:39 | HHI.PR ---
Subjective Subjective Remarks Resting in bed Alert oriented Heparin drip DC'd Still having some left-sided chest pain, she is status post CT scan chest, exam normal (Breanne Leon) Review of Systems Constitutional Constitutional Remarks 10 point ROS done positives noted (Breanne Leon) Pulmonary Respiratory: Shortness of Breath (at intervals) (Breanne Leon) Cardiology CV: Chest Pain (noncardiac, left chest) (Breanne Leon) Psychiatric Psychiatric: Normal Mood, Anxiety (Breanne Leon) Vitals/Results Intake & Output 10/05/16 10/05/16 10/06/16 15:00 23:00 07:00 Intake Total 1664 ml Output Total 1050 ml Balance 614 ml Intake Oral 480 ml IV Total 1184 ml Output Urine Total 1050 ml # Voids 1 # Bowel Movements 0 Vital Signs Vital Signs Date Time Temp Pulse Resp B/P Pulse Ox O2 Delivery O2 Flow Rate FiO2 10/06/16 12:01 54 10/06/16 11:01 97.2 59 18 110/71 95 10/06/16 11:00 51 10/06/16 09:25 97 21 10/06/16 08:15 54 10/06/16 08:15 97.8 45 16 113/67 96 10/06/16 03:32 59 10/06/16 03:32 98.2 51 16 103/69 96 10/05/16 23:41 98.0 65 16 108/72 96 10/05/16 23:41 65 10/05/16 21:00 97.8 62 16 141/89 96 10/05/16 21:00 62 10/05/16 17:17 88 19 132/65 95 Room Air (Breanne Leon) CBC/BMP: 10/06/16 0509 10/06/16 0509 Lab Results Laboratory Tests Test 10/05/16 10/06/16 10/06/16 17:40 00:06 05:09 Total Creatine Kinase 72 U/L 64 U/L Troponin I LESS THAN 0.02 LESS THAN 0.02 NG/ML NG/ML Activated Partial 37.6 SEC Thromboplast Time White Blood Count 9.2 TH/MM3 Red Blood Count 4.51 MIL/MM3 Hemoglobin 13.4 GM/DL Hematocrit 39.9 % Mean Corpuscular Volume 88.4 FL Mean Corpuscular Hemoglobin 29.7 PG Mean Corpuscular Hemoglobin 33.6 % Concent Red Cell Distribution Width 13.1 % Platelet Count 265 TH/MM3 Mean Platelet Volume 8.0 FL Neutrophils (%) (Auto) 51.4 % Lymphocytes (%) (Auto) 39.7 % Monocytes (%) (Auto) 6.0 % Eosinophils (%) (Auto) 2.4 % Basophils (%) (Auto) 0.5 % Neutrophils # (Auto) 4.7 TH/MM3 Lymphocytes # (Auto) 3.6 TH/MM3 Monocytes # (Auto) 0.6 TH/MM3 Eosinophils # (Auto) 0.2 TH/MM3 Basophils # (Auto) 0.0 TH/MM3 CBC Comment DIFF FINAL Differential Comment Sodium Level 142 MEQ/L Potassium Level 4.2 MEQ/L Chloride Level 109 MEQ/L Carbon Dioxide Level 27.5 MEQ/L Anion Gap 6 MEQ/L Blood Urea Nitrogen 13 MG/DL Creatinine 0.88 MG/DL Estimat Glomerular Filtration 68 ML/MIN Rate Random Glucose 101 MG/DL Uric Acid 4.3 MG/DL Calcium Level 8.4 MG/DL Triglycerides Level 85 MG/DL Cholesterol Level 186 MG/DL LDL Cholesterol 117 MG/DL HDL Cholesterol 51.8 MG/DL Cholesterol/HDL Ratio 3.59 RATIO Vitamin B12 Level 371 PG/ML Imaging Remarks Last Impressions CT Angiography 10/06/16 0000 Signed Impressions: Service Date/Time: Thursday, October 06, 2016 11:19 - CONCLUSION: No pulmonary embolus identified. Bogdan Patterson MD Chest X-Ray 10/05/16 1400 Signed Impressions: Service Date/Time: Wednesday, October 05, 2016 14:18 - CONCLUSION: No acute cardiopulmonary disease. Froilan Olson MD (Breanne Leon) Physical Exam General General Appearance: Well Developed, Well Nourished, Obese (Breanne Leon) Eyes Eye Exam: Pupils Equal, Pupils Reactive (Breanne Leon) Ears & Nose Ears & Nose Exam: Nasal Mucosa [place] (Breanne Leon) Throat Throat Exam: Oral Mucosa [place] & Moist ([place],Breanne M. SASH MAKER) Neck Neck Exam: Neck Supple ([place] M. SASH MAKER) Pulmonary Resp Exam: Decreased Bases, Diminished Breath Sounds ([place] M. SASH MAKER) Cardiology CV Exam: Bradycardia ([place] M. SASH MAKER) Gastrointestinal/Abdomen GI Exam: Soft, Non-Tender, Bowel Sounds Present ([place],Breanne M. SASH MAKER) Genitourinary Exam: Clear Urine ([place] M. SASH MAKER) Musculoskeletal MS Exam: Joints Intact ([place] M. SASH MAKER) Integumentary Skin Exam: Warm, Dry, Intact ([place] M. SASH MAKER) Extremeties Extremities Exam: No Edema ([place] M. SASH MAKER) Neurologic Neuro Exam: Alert, Awake, Oriented, Speech Clear, Moving All Extremities ( [place] M. SASH MAKER) Assessment/Plan Assessment/Plan Vital signs reviewed, afebrile BP normal trends heart rate bradycardic, mostly in the 50s-60s, as low in the 40s Exertional chest pains/pressure, improved with nitroglycerin Exertional electrocardiographic changes Possible angina, Hyperlipidemia, not on treatment Obesity Bradycardia, questionable her norm? Plan Patient transitioned out of the intensive care, heart catheterization normal, no stents, no ID, no coronary artery disease Heparin drip DC'd Patient back from CT, chest, still complains of mild chest pain left upper quadrant, shortness of breath, possible muscle skeletal? Appreciate cardiology consult and plan of care Hyperlipidemia, LDL abnormal, consider statin, Lipitor Hypothyroidism, patient is on Synthroid, check level in the morning Dependent on any further testing needed, discharge planning within the next day or 2, follow up as outpatient Discussed with patient Discussed with nurse Discussed with Dr. Santacruz, seen on his behalf (Breanne Leon) Assessment/Plan seen, examined by myself, Dr Santacruz, today 10/06/16 Discussed with patient Discussed with mid level provider Discussed with nurse No evidence of significant coronary stenosis no evidence of PE Discharge home today Will on Protonix need outpatient EGD The exam, history, and the medical decision-making described in the above note were completed with the assistance of the mid-level provider. I reviewed the findings presented. I attest that I had a [id number] encounter with the patient on the same day, and personally performed and documented my assessment and findings in the medical record. 40 minutes spent (Alli Santacruz MD) Breanne Leon Oct 06, 2016 14:39 Alli Santacruz MD Oct 06, 2016 17:35
[2016-10-06] MEDS ORDERED: PROT40TA PO (16:50)
--- NOTE | 2016-10-06 17:00 | EKG ---
Date Performed: 10/05/2016 Time Performed: 13:58:44 PTAGE: 51 years EKG: SINUS BRADYCARDIA BORDERLINE ECG PREVIOUS TRACING : 10/05/2016 13.51 DOCTOR: Jam Reed Interpretating Date/Time 10/06/2016 16:59:17
[2016-10-06 17:38] LABS: HEMOGLOBIN A1a 0.7 %; HEMOGLOBIN A1b 1.7 %; HEMOGLOBIN Ao 85.3 %; HEMOGLOBIN LA1C 1.8 %; HEMOGLOBIN P3 3.6 %
[2016-10-07] MEDS ORDERED: ATORVASTATIN 40 MG TAB PO SCH (09:00)
== END 2016-10-06 18:21 | disposition home or self-care (01) | DRG 287 ==
LOC: NEPE 13:36 → NEDA 17:23 → HCVR 20:42 → HCIS 10-06 09:40
PROVIDERS: ADMIT Specialist; ATTEND Specialist
PROC: B211YZZ Fluoroscopy of Multiple Coronary Arteries using Other Contrast (ICD-10-PCS; 2016-10-06)
PROC: B215YZZ Fluoroscopy of Left Heart using Other Contrast (ICD-10-PCS; 2016-10-06)
PROC: 4A023N7 Measurement of Cardiac Sampling and Pressure, Left Heart, Percutaneous Approach (ICD-10-PCS; principal; 2016-10-06 07:30)
DX: R07.89 Other chest pain (principal); R00.1 Bradycardia, unspecified; R94.39 Abnormal result of other cardiovascular function study; Z68.32 Body mass index [BMI] 32.0-32.9, adult; E03.9 Hypothyroidism, unspecified; E78.5 Hyperlipidemia, unspecified; F41.9 Anxiety disorder, unspecified; E66.9 Obesity, unspecified
CPT/HCPCS: 71010; 71275; 80048; 80053; 80061; 82550; 82607; 83036; 83735; 84484; 84550; 85025; 85610; 85730; 93005; 93458; C1760; C1769; C1893; G0269; J1644; J2250; J2270; J7030; Q0163; Q9967